=== PATIENT | male | born 1950 | race African-American/Black ===

== ENCOUNTER 2018-07-31 15:36 | Observation (INO) | payer BC, OTHER ==
[2018-07-31 16:51] LABS: Mean Corpuscular HGB CONC 34.8 g/dL (32.0-36.0); Mean Corpuscular Hemoglobin 30.9 pg (27.0-31.0); Mean Corpuscular Volume 88.8 fL (78.0-98.0); Mean Platelet Volume 7.5 fL (7.4-10.4); Platelet Count 107 thou/uL (130-400); RBC Distribution Width 12.7 % (11.5-14.5); Red Blood Cell (RBC) Count 3.24 mill/uL (4.70-6.10); White Blood Cell (WBC) Count 4.1 thou/uL (4.8-10.8)
[2018-07-31 17:04] LABS: Lymphocytes 60 % (21-51); MDiff Complete? YES; Monocytes 8 % (0-10); Neutrophil 30 % (42-75); PLT Morphology Comment Appears Decreased; Polychromasia SLIGHT = 2-3 cells (100X) (0-2/hpf); Reactive Lymphocytes 1 % (0-10)
--- NOTE | 2018-07-31 17:06 | CT ---
BRAIN CT WITHOUT IV CONTRAST: History: 68-year-old male with history of weakness, fall. Head injury. FINDINGS: No focal mass or midline shift. No intra or extraaxial hemorrhage. Sinuses and mastoids are clear. IMPRESSION: No acute intracranial process. No mass or bleed. POS: [facility]
[2018-07-31 17:08] LABS: ALT (SGPT) 22 U/L (8-55); AST (SGOT) 49 U/L (5-34); Albumin 4.9 g/dL (3.4-4.8); Alkaline Phosphatase 86 U/L (40-150); Anion Gap 17 mmol/L (10-20); BUN (Urea Nitrogen) 19 mg/dL (8.4-25.7); Bilirubin, Total 0.5 mg/dL (0.2-1.2); CRP (Inflammatory) Less than 0.50 mg/dL (= or < 0.5); Calc. Creatinine Clearance 0 mL/min (70-130); Calcium 9.2 mg/dL (7.8-10.44); Carbon Dioxide 18 mmol/L (23-31); Chloride 94 mmol/L (98-107); Estimated GFR-MDRD Greater than 90; Globulin 2.8 g/dL (2.4-3.5); Glucose 84 mg/dL (80-115); Potassium 4.6 mmol/L (3.5-5.1); Protein, Total 7.7 g/dL (5.8-8.1); Sodium 124 mmol/L (136-145)
[2018-07-31 18:48] LABS: Folate (Folic Acid) 9.3 ng/mL (7.0-31.4)
--- NOTE | 2018-07-31 18:52 | PDOC.FPRHP ---
- History of Present Illness Chief Complaint: Falls History of Present Illness: 68 year old M presents after 2 falls today. Fall from standing position early this morning and at 14:30 this afternoon. Has no preceding symptoms. Denies dizziness, lightheadedness, weakness before or after fall. says patient will stare off for a few seconds and then fall to ground. He will "shake" for a minute afterward and family are able to help him stand up nearly immediately following fall. Denies LOC or hitting head. March 2017 patient had similar falls which were worked up by Dr. Chandler, all negative per patient. Patient has had no recent changes in medications. HTN well controlled, BPs 120- 130s systolic, pulse 60-65 at home. No changes in memory, weight, strength, appetite. - Allergies/Adverse Reactions Allergies Allergy/AdvReac Type Severity Reaction Status Date / Time amlodipine Allergy Verified 07/31/18 20:57 - Home Medications Medication Instructions Recorded Confirmed Type Atenolol [Tenormin] 50 mg PO BID 07/31/18 07/31/18 History Atorvastatin Calcium [Lipitor] 40 mg PO HS 07/31/18 07/31/18 History Levothyroxine Sodium [Synthroid] 50 mcg PO DAILY 07/31/18 07/31/18 History Lisinopril 40 mg PO BID 07/31/18 07/31/18 History hydrALAZINE [Apresoline] 10 mg PO BID 07/31/18 07/31/18 History - History PMHx: HTN, HLD, hypothyroid PSHx: R inguinal hernia repair FHx: mom-HTN Social: Lives with of 45 years. 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 Denies tobacco or drug use. Drinks 4-5 beers/day. - Review of Systems General: denies: fever/chills, weight/appetite/sleep changes, fatigue Eyes: denies: eye pain, vision changes ENT: denies: nasal congestion, rhinorrhea Respiratory: denies: cough, shortness of breath, exercise intolerance Cardiovascular: denies: chest pain, palpitation, edema Gastrointestinal: denies: nausea, vomiting, diarrhea, constipation, abdominal pain, GI bleeding Genitourinary: denies: dysuria, polyuria Skin: denies: rashes, lesions Musculoskeletal: denies: pain, tenderness, swelling Neurological: reports: syncope. denies: numbness, seizure, weakness Psychological: denies: anxiety, depression - Vital signs BP: 137/83 HR: 92 RR: 19 Tmax: 98.7 Pox: 99% on RA Wt: 69 kg - Physical Exam Constitutional: NAD, awake, alert and oriented HEENT: normocephalic and atraumatic, PERRLA, EOMI, grossly normal vision, grossly normal hearing, MMM, oropharynx clear Neck: supple, trachea midline, no LAD, no JVD, no thyromegaly Heart: RRR, normal S1/S2, no murmurs/rubs/gallops, pulses present, no edema Lungs: CTAB, no respiratory distress, no rales/rhonchi, no wheezing, no retractions Abdomen: soft, non-tender, bowel sounds present, no masses/distention Musculoskeletal: normal structure, normal tone Neurological: CN II-XII intact, normal sensation, other (muscle strength 5/5 in all extremities) Skin: no rash/lesions, good turgor, capillary refill <2 seconds Heme/Lymphatic: no unusual bruising or bleeding, no purpura, no LAD Psychiatric: normal mood and affect, good judgment and insight, intact recent and remote memory FMR H&P: Results - Labs Result Diagrams: 08/01/18 04:50 08/01/18 04:50 Lab results: WBC 4.1 thou/uL (4.8-10.8) L 07/31/18 16:36 Hgb 10.0 g/dL (14.0-18.0) L 07/31/18 16:36 Hct 28.7 % (42.0-52.0) L 07/31/18 16:36 MCV 88.8 fL (78.0-98.0) 07/31/18 16:36 Plt Count 107 thou/uL (130-400) L 07/31/18 16:36 ESR Westergren 3 mm/hr (Less than 20) 07/31/18 16:36 Sodium 124 mmol/L (136-145) L 07/31/18 16:37 Potassium 4.6 mmol/L (3.5-5.1) 07/31/18 16:37 Chloride 94 mmol/L (98-107) L 07/31/18 16:37 Carbon Dioxide 18 mmol/L (23-31) L 07/31/18 16:37 BUN 19 mg/dL (8.4-25.7) 07/31/18 16:37 Creatinine 0.96 mg/dL (0.6-1.3) 07/31/18 16:37 Glucose 84 mg/dL (80-115) 07/31/18 16:37 Calcium 9.2 mg/dL (7.8-10.44) 07/31/18 16:37 Total Bilirubin 0.5 mg/dL (0.2-1.2) 07/31/18 16:37 AST 49 U/L (5-34) H 07/31/18 16:37 ALT 22 U/L (8-55) 07/31/18 16:37 Alkaline Phosphatase 86 U/L (40-150) 07/31/18 16:37 C-Reactive Protein Less than 0.50 mg/dL (= or < 0.5) 07/31/18 16:37 Serum Total Protein 7.7 g/dL (5.8-8.1) 07/31/18 16:37 Albumin 4.9 g/dL (3.4-4.8) H 07/31/18 16:37 FMR H&P: A/P - Problem List (1) Syncope and collapse Current Visit: Yes Status: Acute Code(s): R55 - SYNCOPE AND COLLAPSE (2) Alcohol abuse Current Visit: Yes Status: Acute Code(s): F10.10 - ALCOHOL ABUSE, UNCOMPLICATED (3) Hyponatremia Current Visit: Yes Status: Acute Code(s): E87.1 - HYPO-OSMOLALITY AND HYPONATREMIA (4) Anemia Current Visit: Yes Status: Acute Code(s): D64.9 - ANEMIA, UNSPECIFIED - Plan 68 year old M presents for unexplained falls at home Possible syncope with history of falls - has had neurology workup 03/2017 for same presentation that was reportedly negative - pt denies LOC, may also consider seizure etiology considering hx given by family - check orthostatic BPs - monitor on telemetry - EKG show NSR, RBBB, L axis deviation - syphilis pending - echo pending - will consult neurology in am - plan for MRI brain tomorrow Hypotonic Hyponatremia - Na+ 124 on admission, calculated serum osmolality 254 - urine osmol/sodium pending - possibly due to beer potomania Alcohol abuse - 4-5 beers/day - initiate ASE protocol - AST/ALT ratio consistent with this Normocytic anemia - monitor CBC - Hgb 10 on admission - iron studies pending Thrombocytopenia - platelets 107 - monitor CBC concern for Vitamin B12 deficiency - B12 342 on admission. Considering hx of alcohol abuse, alcoholic liver disease may skew results. - methylmalonic acid and homocysteine pending HTN - as been treated for years, well controlled - no recent changes in medications - continue home lisinopril and hydralazine. Hold atenolol. HLD - continue home atorvastatin Hypothyroidism - on synthroid Diet: Regular Ppx: SCDs Dispo: admit to telemetry for observation FMR H&P: Upper Level - Pertinent history 68M p/w recurrent falls over the last 24 hours. He fell around midnight and then again around 14:30. He reports no associated dizziness, LOC, head trauma, chest pain, or aura. He denies any chest pain associated with the falls. He denies slipping on the floor or tripping on any rugs or furniture. He had frequent falls in March of 2017 that were evaluated at [facility] and worked up with Dr. Chandler. Patient reports no identifiable cause was found for the falls. All imaging, CT and MRI, was negative. He underwent PT for weak right hip girdle but did not start any medication. No further falls until yesterday. No family history of tremor, seizure DO, or Parkinsons disease. He has been stable on all medication for quite some time. Last change in blood pressure medication was made in November of this year. Daughter and son-in-law are in the room and can elaborate further on history. They report that he was staring blankly and became unresponsive to verbal stimuli just before the second fall. After falling, he appeared shaky and it took 30 seconds to 1 minute for him to regain his bearings and begin to answer questions. They deny any seizure activity and report he was able to answer all questions normally within 1-2 minutes of falling. - Pertinent findings WBC: 4.1 H.0 MCV: 89 ESR: 3 CRP: less than 0.5 Na: 124 AST: 49 ALT: 22 Vit B6 and B12 on low end of normal in August of 2017 EKG: complete RBBB CT brain w/o: negative 109/71 mmHg 84 bpm 22 breaths/min 98.7F 99% on RA Gen: A&Ox3 CV: RRR; no murmurs; no carotid bruits Pulm: CTA-B; no adventitious sounds GI: soft; nontender; nondistended Neuro: CNII-XII intact; gait is unsteady but not wide based; no dysdiadochokinesia (rapid alternating movements); normal finger to nose test; normal speech; no nystagmus - Plan Date/Time: 07/31/181850 1. Suspected Syncope -denies loss of consciousness but history and family corroboration consistent with syncope -neurocardiogenic etiology unlikely given no triggers are associated with attacks -low suspicion for orthostatic hypotension given normal PO intake and stable medication regimen; he was able to stand up in exam room and walk without becoming light headed; regardless, will check orthostatic VS -possible cardiac etiology, will monitor on telemetry and order TTE; however no CP or palpitations associated with episodes -neurologic etiology possible, will check MRI and consult Neurology in AM, also request records from [facility] for prior work-up; CT head negative -check TSH, vitamin B6/12, folate, RPR 2. Hypotonic Hyponatremia -Na at 124 with serum osms of 259 -check urine sodium and urine osms -appears euvolemic on exam; will try IVF and monitor with AM labs 3. Normocytic anemia -likely multifactorial; probable iron deficiency masked by macrocytosis from alcohol and low B12 -check iron studies and B6/12, folate 4. Alcohol abuse -reports 5 drinks per day -ASE protocol 5. HTN -continue home meds -hold beta laura until orthostatic vital signs performed 6. HLD -continue home statin 7. Hypothyroidism -continue synthroid I, Jerardo Rosenbaum, have evaluated this patient and agree with findings/plan as outlined by network internship resident. Pertinent changes/additions are listed here. Attending Addendum - Attending Addendum Date/Time: 07/31/181919 I personally evaluated the patient and discussed the management with Dr. Rose and Dr. Rosenbaum I agree with the History, Examination, Assessment and Plan documented above with any addition or exceptions noted below. 68 yo male with history of HTN presents for recurrent falls today. Patient with 2 episodes of falling at home. Minor injury to occipital region of head. Patient denies symptoms prior to falling. Denies LOC. Family members present state he is disoriented prior to and after falling. Patient denies gait abnormalities or weakness. Family states more falls happen at night then during day. Denies any sleep aids. Reports drinking about 5 alcoholic drinks per day. No other changes. Falls vs syncope: Unsure etiology based on history. Cerebellar findings noted on neuro exam that is contributing to balance and stability. These changes likely related to age and chronic alcohol use. Due to mild disorientation noted by family unsure if cardiac factor contributing or substance use contributing. Place on tele. MRI in AM. PT evaluation to further classify cerebellar findings. Request prior workup at [facility]. Notify neuro as needed. Obs overnight. Robb
[2018-07-31 20:52] VITALS: BMI 20.2
[2018-07-31 22:58] LABS: Osmolality, Urine 289 mOsm/kg (300-900)
[2018-07-31] MEDS: Sodium Chloride 0.9% 1,000 ML IV SCH (23:23)
[2018-07-31 23:44] LABS: Sodium, Urine 45 mmol/L (Not Available)
[2018-08-01 05:32] LABS: Anion Gap 14 mmol/L (10-20); BUN (Urea Nitrogen) 14 mg/dL (8.4-25.7); Calc. Creatinine Clearance 90 mL/min (70-130); Calcium 9.1 mg/dL (7.8-10.44); Carbon Dioxide 19 mmol/L (23-31); Chloride 102 mmol/L (98-107); Estimated GFR-MDRD Greater than 90; Glucose 68 mg/dL (80-115); Iron 98 ug/dL (65-175); Iron Binding Capacity, Total 214 mcg/dL (261-462); Potassium 4.4 mmol/L (3.5-5.1); Sodium 131 mmol/L (136-145)
--- NOTE | 2018-08-01 05:37 | PDOC.FPRHP ---
- Allergies/Adverse Reactions Allergies Allergy/AdvReac Type Severity Reaction Status Date / Time amlodipine Allergy Verified 07/31/18 20:57 - Home Medications Medication Instructions Recorded Confirmed Type Atenolol [Tenormin] 50 mg PO BID 07/31/18 07/31/18 History Atorvastatin Calcium [Lipitor] 40 mg PO HS 07/31/18 07/31/18 History Levothyroxine Sodium [Synthroid] 50 mcg PO DAILY 07/31/18 07/31/18 History Lisinopril 40 mg PO BID 07/31/18 07/31/18 History hydrALAZINE [Apresoline] 10 mg PO BID 07/31/18 07/31/18 History - History PMHx: PSHx: FHx: Social: - Vital signs BP: [] HR: [] RR: [] Tmax: [] Pox: []% on [] Wt: [] FMR H&P: Results - Labs Result Diagrams: 07/31/18 16:36 08/01/18 04:50 Lab results: WBC 4.1 thou/uL (4.8-10.8) L 07/31/18 16:36 Hgb 10.0 g/dL (14.0-18.0) L 07/31/18 16:36 Hct 28.7 % (42.0-52.0) L 07/31/18 16:36 MCV 88.8 fL (78.0-98.0) 07/31/18 16:36 Plt Count 107 thou/uL (130-400) L 07/31/18 16:36 ESR Westergren 3 mm/hr (Less than 20) 07/31/18 16:36 Sodium 131 mmol/L (136-145) L 08/01/18 04:50 Potassium 4.4 mmol/L (3.5-5.1) 08/01/18 04:50 Chloride 102 mmol/L (98-107) 08/01/18 04:50 Carbon Dioxide 19 mmol/L (23-31) L 08/01/18 04:50 BUN 14 mg/dL (8.4-25.7) 08/01/18 04:50 Creatinine 0.78 mg/dL (0.6-1.3) 08/01/18 04:50 Glucose 68 mg/dL (80-115) L 08/01/18 04:50 Calcium 9.1 mg/dL (7.8-10.44) 08/01/18 04:50 Total Bilirubin 0.5 mg/dL (0.2-1.2) 07/31/18 16:37 AST 49 U/L (5-34) H 07/31/18 16:37 ALT 22 U/L (8-55) 07/31/18 16:37 Alkaline Phosphatase 86 U/L (40-150) 07/31/18 16:37 C-Reactive Protein Less than 0.50 mg/dL (= or < 0.5) 07/31/18 16:37 Serum Total Protein 7.7 g/dL (5.8-8.1) 07/31/18 16:37 Albumin 4.9 g/dL (3.4-4.8) H 07/31/18 16:37 FMR H&P: A/P - Problem List (1) Syncope and collapse Current Visit: Yes Status: Acute Code(s): R55 - SYNCOPE AND COLLAPSE (2) Alcohol abuse Current Visit: Yes Status: Acute Code(s): F10.10 - ALCOHOL ABUSE, UNCOMPLICATED (3) Anemia Current Visit: Yes Status: Acute Code(s): D64.9 - ANEMIA, UNSPECIFIED (4) Hyponatremia Current Visit: Yes Status: Acute Code(s): E87.1 - HYPO-OSMOLALITY AND HYPONATREMIA - Plan 68 year old M presents for unexplained falls at home Possible syncope with history of falls - has had neurology workup 03/2017 for same presentation that was reportedly negative - pt denies LOC, may also consider seizure etiology considering hx given by family - check orthostatic BPs - monitor on telemetry - EKG show NSR, RBBB, L axis deviation - syphilis pending - echo pending - will consult neurology in am - plan for MRI brain tomorrow Hypotonic Hyponatremia - Na+ 124 on admission, calculated serum osmolality 254 - urine osmol/sodium pending - possibly due to beer potomania Alcohol abuse - 4-5 beers/day - initiate ASE protocol - AST/ALT ratio consistent with this Normocytic anemia - monitor CBC - Hgb 10 on admission - iron studies pending Thrombocytopenia - platelets 107 - monitor CBC concern for Vitamin B12 deficiency - B12 342 on admission. Considering hx of alcohol abuse, alcoholic liver disease may skew results. - methylmalonic acid and homocysteine pending HTN - as been treated for years, well controlled - no recent changes in medications - continue home lisinopril and hydralazine. Hold atenolol. HLD - continue home atorvastatin Hypothyroidism - on synthroid Diet: Regular Ppx: SCDs Dispo: admit to telemetry for observation FMR H&P: Upper Level - Plan Date/Time: 08/01/18 0536 I, [], have evaluated this patient and agree with findings/plan as outlined by record label internship resident. Pertinent changes/additions are listed here.
[2018-08-01 05:47] LABS: Eosinophils 2 % (0-10); Hemoglobin 9.2 g/dL (14.0-18.0); Lymphocytes 47 % (21-51); MDiff Complete? YES; Mean Corpuscular HGB CONC 35.2 g/dL (32.0-36.0); Mean Corpuscular Hemoglobin 31.1 pg (27.0-31.0); Mean Corpuscular Volume 88.4 fL (78.0-98.0); Mean Platelet Volume 7.1 fL (7.4-10.4); Monocytes 14 % (0-10); Neutrophil 36 % (42-75); PLT Morphology Comment Appears Decreased; Platelet Count 96 thou/uL (130-400); RBC Distribution Width 12.4 % (11.5-14.5); Red Blood Cell (RBC) Count 2.95 mill/uL (4.70-6.10); White Blood Cell (WBC) Count 2.3 thou/uL (4.8-10.8)
[2018-08-01 05:48] LABS: Syphilis Antibody Nonreactive (Nonreactive); Syphilis Antibody Index 0.04 S/CO (<1.00 Non-Reactive)
[2018-08-01] MEDS ORDERED: Levothyroxine Sodium 50 MCG TAB PO SCH (06:00)
[2018-08-01] MEDS: Sodium Chloride 0.9% 1,000 ML IV SCH ×2 (07:15→15:43)
--- NOTE | 2018-08-01 08:24 | PDOC.FM ---
- Subjective Subjective: 68 yo M here for syncopal episodes. Denies any LOC yesterday. Reports he is feeling well and in no pain, denies headache, chest pain or SOB. Reports his last beer was yesterday at noon. - Objective Vital Signs & Weight: Vital Signs (12 hours) Temp Pulse Resp BP BP BP BP 08/01/18 08:16 79 08/01/18 07:22 98.3 F 74 16 08/01/18 07:10 98.6 F 79 20 160/87 H 08/01/18 03:51 98.3 F 74 16 132/82 132/82 07/31/18 23:20 98.6 F 71 18 101/57 L 101/57 L 07/31/18 21:43 94/55 L 07/31/18 21:42 108/62 77/53 L 07/31/18 20:59 98.5 F 84 18 07/31/18 20:30 98.5 F 84 18 144/75 H 144/75 H BP Pulse Ox 08/01/18 08:16 08/01/18 07:22 08/01/18 07:10 95 08/01/18 03:51 95 07/31/18 23:20 93 L 07/31/18 21:43 07/31/18 21:42 115/69 07/31/18 20:59 07/31/18 20:30 94 L Weight Weight 68.538 kg I&O: 07/31/18 08/01/18 08/02/18 06:59 06:59 06:59 Intake Total 1043 Output Total 2150 250 Balance -1107 -250 Result Diagrams: 08/01/18 04:50 08/01/18 04:50 <Laura Birch - Last Filed: 08/01/18 11:48> - Objective Vital Signs & Weight: Vital Signs (12 hours) Temp Pulse Pulse Pulse Resp BP BP 08/01/18 11:39 99.1 F 92 20 08/01/18 10:35 81 88 161/84 H 08/01/18 08:16 79 08/01/18 07:22 98.3 F 74 16 08/01/18 07:10 98.6 F 79 20 08/01/18 03:51 98.3 F 74 16 132/82 BP BP BP BP BP Pulse Ox Pulse Ox 08/01/18 11:39 161/80 H 130/65 175/95 H 97 08/01/18 10:35 169/89 H 94 L 08/01/18 08:16 08/01/18 07:22 08/01/18 07:10 160/87 H 95 08/01/18 03:51 132/82 95 Pulse Ox 08/01/18 11:39 08/01/18 10:35 97 08/01/18 08:16 08/01/18 07:22 08/01/18 07:10 08/01/18 03:51 Weight Weight 68.538 kg I&O: 07/31/18 08/01/18 08/02/18 06:59 06:59 06:59 Intake Total 1043 Output Total 2150 250 Balance -1107 -250 Result Diagrams: 08/01/18 04:50 08/01/18 04:50 <Ludwig House - Last Filed: 08/01/18 13:34> Phys Exam - Physical Examination Constitutional: NAD HEENT: PERRLA, moist MMs Neck: no nodes, supple Respiratory: no wheezing, no rales, no rhonchi, clear to auscultation bilateral Cardiovascular: RRR, no significant murmur Gastrointestinal: soft, non-tender, no distention, positive bowel sounds Musculoskeletal: no edema, pulses present Neurological: moves all 4 limbs Psychiatric: normal affect, A&O x 3 <Laura Birch - Last Filed: 08/01/18 11:48> Dx/Plan (1) Syncope and collapse Code(s): R55 - SYNCOPE AND COLLAPSE Status: Acute (2) Alcohol abuse Code(s): F10.10 - ALCOHOL ABUSE, UNCOMPLICATED Status: Acute (3) Anemia Code(s): D64.9 - ANEMIA, UNSPECIFIED Status: Acute (4) Hyponatremia Code(s): E87.1 - HYPO-OSMOLALITY AND HYPONATREMIA Status: Acute - Plan Plan: 68 year old M presents for unexplained falls at home Possible syncope with history of falls - has had neurology workup 03/2017 for same presentation that was reportedly negative - pt denies LOC, may also consider seizure etiology considering hx given by family - Orthostatic BP positive, recheck today, post fluid resuscitation - monitor on telemetry - EKG show NSR, RBBB, L axis deviation. - syphilis negative - echo pending - MRI brain pending -Requesting records [facility] from admission 1.5 years ago Hypotonic Hyponatremia - Na+ 124 on admission, calculated serum osmolality 254 - urine osmol/sodium unremarkable - possibly due to beer potomania Alcohol abuse - 4-5 beers/day, last beer 07/31/18 around noon - initiate ASE protocol - AST/ALT ratio consistent with this Normocytic anemia, probably Anemia of chronic disease - monitor CBC - Hgb 10 on admission - iron studies show anemia of chronic disease (TIBC Low, ferritin high) Thrombocytopenia - platelets 96 - monitor CBC concern for Vitamin B12 deficiency - B12 342 on admission. Considering hx of alcohol abuse, alcoholic liver disease may skew results. - methylmalonic acid pending - Homocysteine high HTN - as been treated for years, well controlled - no recent changes in medications - continue home lisinopril and hydralazine. Hold atenolol. HLD - continue home atorvastatin Hypothyroidism - on synthroid - TSH wnl Diet: Regular Ppx: SCDs <Laura Birch - Last Filed: 08/01/18 11:48> Attending Addendum - Attending Addendum Date/Time: 08/01/18 2702 I personally evaluated the patient and discussed the management with Dr. Birch. I agree with the History, Examination, Assessment and Plan documented above with any addition or exceptions noted below. Patient here with syncope x2 with history of negative workup in the past. He had positive orthostatics and has been fluid resuscitated. Will recheck vitals this afternoon and consider discharge this afternoon if ambulating and feeling well. He is having some mild tremor at this time that could be early alcohol withdrawals. Await results from MRI but if normal can likely be discharged home today with further outpatient follow up. His sodium is likely beer potomania related and has responded well to NS fluids. Counselled on cessation of alcohol for long-term health. <Ludwig House - Last Filed: 08/01/18 13:34>
[2018-08-01] MEDS ORDERED: hydrALAZINE 10 MG TAB PO SCH (09:00)
[2018-08-01] MEDS ORDERED: Lisinopril 20 MG TAB PO SCH (09:00)
--- NOTE | 2018-08-01 11:16 | MRI ---
BRAIN MRI WITHOUT COTNRAST: HISTORY: Weakness. Tremor. History of fall. COMPARISON: None. TECHNIQUE: Brain MRI is performed without intravenous Gadolinium administration. Multisequential, multiplanar i maging is performed. FINDINGS: Calvarium has a normal T1 marrow signal intensity. Midline brain parenchymal structures are unremark able. No hemorrhage on the axial gradient echo sequence. No parenchymal mass, mass effect, or midline shift. Brain volume is age appropriate. Cortical nix- white matter differentiation is preserved. The ventricles and sulci are patent and symmetric. Central arterial flow voids are maintained. Abse nt restricted diffusion. No significant T2 or FLAIR white matter hyperintensities to suggest chronic small-vessel ischemic clair nge. Adequate aeration of the sinuses and mastoid air cells. IMPRESSION: 1. Absent restricted diffusion. No acute infarct. 2. No intracranial hemorrhage. 3. Age-appropriate atrophy. POS: [facility]
[2018-08-01 12:18] VITALS: TEMP 99.1
[2018-08-01 13:59] LABS: HIV (1/2) Antibody/Antigen Non-Reactive (NonReactive); HIV 1/2 INDEX 0.08 S/CO (<1.00)
[2018-08-01 16:08] VITALS: BP 152/89
[2018-08-01] MEDS ORDERED: Cyanocobalamin 1000 MCG/ML VIAL IM SCH (16:45)
--- NOTE | 2018-08-01 17:07 | CON ---
DATE OF CONSULTATION: 08/01/2018 REFERRING PHYSICIAN: Dr. Daryl Ruelas. REASON FOR CONSULTATION: Tremors and fall. HISTORY OF PRESENT ILLNESS: Mr. Mcfarlane is a pleasant 68-year-old - [place] male who has been consulted for evaluation of tremor and fall. The history is obtained from patient as well as his and daughter who were present at bedside. The patient reports that yesterday at 1:30 in the morning, he woke up from sleep and noticed that the light was turned on. He went to go check on the light and realized that his daughter was working outside and had the light turned on, so he decided to go back to his bed. At that point, he suddenly fell down and there was no loss of consciousness. He did not trip over any objects. There was no lightheadedness, no dizziness, no vertigo-type sensation. He returned back to his bed and went back to sleep okay. Around 2: 00 p.m. on yesterday, he had another episode where he lost balance and fell down. With both of these episodes, this happened while he was walking. With both of these episodes, there was no lightheadedness, no dizziness, no vertigo- type sensation. No near syncope or syncope. There was no seizure-like activity. He does report of having noted tremors over the past few days that are primarily present with activities. He reports that he had similar episode of falling down in 2016, at which time he had seen Dr. Chandler. He had an extensive workup done at that time without any conclusion. He had approximately 3 falls at that time. He denies any headache, vision changes, diplopia, ptosis, dysarthria, dysphagia, numbness, tingling or weakness. He does report of tremors over the past few days that was primarily with activities. He denies any difficulty with walking or balance. He denies stooped posture. He denies shuffling gait. He denies difficulty with bowel or bladder function. PAST MEDICAL HISTORY: Significant for hypertension, hyperlipidemia, and hypothyroidism. PAST SURGICAL HISTORY: Right inguinal hernia repair. FAMILY HISTORY: Significant for hypertension. SOCIAL HISTORY: He denies smoking or illicit drug use. He does drink 4-5 years on a daily basis. He lives with his , currently works as at [employer]. CURRENT MEDICATIONS: Please review MAR. ALLERGIES: Include AMLODIPINE. REVIEW OF SYSTEMS: As mentioned in the HPI, otherwise negative. PHYSICAL EXAMINATION: VITAL SIGNS: Blood pressure 151/80, pulse of 92, temperature of 99.1, respirations of 20, O2 sats of 97% on room air. GENERAL: Well-developed, well-nourished -[place] male in no apparent distress. RESPIRATORY: Clear to auscultation bilaterally. CARDIOVASCULAR: Regular rate and rhythm. NEUROLOGIC: Mental status: The patient is awake, alert, oriented x3. Speech and language: Fluent speech. Cranial nerves: Pupils are 3 mm and reactive. Visual robison are intact. Extraocular muscles are intact. No nystagmus is noted. Face is symmetric. Tongue and uvula midline. Motor exam showed normal tone and bulk with 5/5 strength in both upper and lower extremities. There is no clubbing or rigidity noted. Sensory: Sensation is intact and symmetric. Deep tendon reflexes 2+ . Babinski: Plantar responses flexion bilaterally. Coordination, There is a mild dysmetria noted in both upper extremities on [id number]. Romberg is slightly positive. He does have tremors in both hands with the postural and kinetic in nature. LABORATORY DATA: I reviewed, which included CBC, CMP, TSH, homocysteine, B12, folic acid, urine osmolality, urine sodium and syphilis, which is significant for WBC of 2.3, hemoglobin 9.2, hematocrit 26.0, platelet count of 96. Sodium of 131, iron of 98. TIBC of 214, total ferritin of 972.56, B12 of 342 with homocysteine level 22.02. Urine osmolality is 289, otherwise negative. IMAGING STUDIES: MRI brain without contrast was reviewed, which showed no acute intracranial abnormality. IMPRESSION: 1. Tremors, likely essential tremors. 2. Gait imbalance. ASSESSMENT AND PLAN: Mr. Mcfarlane is a pleasant 68-year-old -[place] male who presented with 2 episodes of falling down as well as tremors over the past few days. His tremors are more action induced. He does also have slight dysmetria on both sides. I have reviewed his MRI brain which is essentially normal. He does have low B12 with a high homocystine level that can affect imbalance, thus I would recommend starting him on B12 replacement therapy with B12 1000 mcg per mL 1 mL IM every weekly for 6 weeks followed by once a month for 6 months. This may also be secondary to long-term alcohol use. I will recommend for him to discontinue alcohol use. I have advised the patient's family that they may need to be seen by Dr. Chandler as an outpatient to have further workup. I do not think he has Parkinson disease as he does not have any cogwheeling rigidity. No stiffness and no resting tremors. No further neurological workup needed from my standpoint. Thank you for consultation. JACQUIE
[2018-08-01] MEDS ORDERED: Atorvastatin Calcium 40 MG TAB PO SCH (21:00)
--- NOTE | 2018-08-02 06:17 | DIS-2 ---
DATE OF ADMISSION: 07/31/2018 DATE OF DISCHARGE: 08/01/2018 RESIDENT: Dr. Laura Birch. ADMITTING ATTENDING: Dr. Burns. DISCHARGE ATTENDING: Dr. Ludwig House. CONSULTATION: Neurology, Dr. Marlen Chirinos on 07/31/2018. PROCEDURES: On 07/31/2018, brain CT: Impression: No acute intracranial process. No mass or bleed. Brain MRI on 08/01/2018: Impression: Absence of restricted diffusion. No acute infarct, no intracranial hemorrhage. PRIMARY DIAGNOSIS: Syncope with history of a fall. SECONDARY DIAGNOSES: 1. Hypotonic hyponatremia. 2. Alcohol abuse. 3. Normocytic anemia, possibly anemia of chronic disease. 4. Thrombocytopenia. 5. Concern for vitamin B12 deficiency. 6. Hypertension. 7. Hyperlipidemia. 8. Hypothyroidism. DISCHARGE MEDICATIONS: 1. 50 mg of atenolol p.o. b.i.d. 2. Atorvastatin 40 mg at bedtime p.o. 3. Hydralazine 10 mg p.o. b.i.d. 4. Levothyroxine 50 mcg p.o. daily. 5. Lisinopril 40 mg p.o. b.i.d. DISCONTINUED MEDICATIONS: None. HISTORY OF PRESENT ILLNESS AND HOSPITAL COURSE: This is a 68-year-old male who presents after 2 falls. He had a fall from a standing position early in the morning and then at 1430 hours later that afternoon. He had no preceding symptoms. He denied dizziness, lightheadedness, or weakness before or after the fall. The said that the patient would stare off for a few seconds and then fell to the ground. He would shake for a minute afterward and family are able to help him stand up nearly immediately following fall. He denied loss of consciousness or hitting his head. On 03/2017, patient had a similar fall which was worked up by Dr. Chandler, all were negative per patient. Patient has had no recent changes in medications. Hypertension is well controlled, blood pressures 120s to 130s systolic, pulse 60-65 in home. He had had no changes in memory, weight, strength, or appetite. For the possible syncope, patient denies loss of consciousness, was considered possibly a seizure etiology, consider the history given by family. He was seen by Neuro, believed that he did not think that he has Parkinson disease because he does not have any cogwheeling rigidity, he did not have any stiffness, or resting tremor. He did not need a further neurological workup from his standpoint. The syncopal episode seemed to be orthostatic in nature. He had positive orthostatic blood pressures where his pressures were drop more than 10 points systolic from lying to sitting and from sitting to standing. Even post-fluid resuscitation, he continued to have positive orthostatics (systolic would drop >10 pts). He was monitored on telemetry. His EKG showed normal sinus rhythm with a right bundle branch block and left axis deviation. His syphilis was negative. He has an echo that is pending and MRI brain that was normal. We also requested records from [facility] from a similar admission presentation a year and half ago, but it only showed that he had a CT of the head and laceration repair. For his hypotonic hyponatremia, his sodium was 124 on admission. It is possibly due to beer potomania. The patient gives a history of drinking 4-5 beers per day. His last one was his day of admission around noon. He was placed on EDGAR protocol. He was also found to have normocytic anemia. His iron studies which showed that he most likely has anemia of chronic disease. His hemoglobin was 10 on admission. He had a low total iron binding capacity and a high ferritin. He was also found to have thrombocytopenia. His platelets were 96. He was also found to have a vitamin B12 deficiency. This is probably secondary to his history of alcohol abuse. He has high homocysteine. He was given a B12 injection on his way out the door per patient request. Hypertension that was well controlled. He was sent home on his home hypertension medications. Hyperlipidemia: He was sent home on his home atorvastatin. Hypothyroidism: He is on Synthroid. His TSH in the hospital was within normal limits. DISPOSITION: Stable. DISCHARGE INSTRUCTIONS: 1. Location: Home. 2. Diet: Regular. 3. Activity: As tolerated. Be careful when he rising from a sitting to a standing position gave herself a minute to equilibrate before moving around. Try not to stand up quickly and move across the room. 4. Followup: Follow up with PCP within 3 days for alcohol abuse, orthostatic hypotension and consider an outpatient cardiac stress test. JACQUIE
[2018-08-05 10:23] LABS: Methylmalonic Acid 76 nmol/L (0-378)
--- NOTE | 2018-08-13 18:19 | EKG ---
Test Reason : Blood Pressure : / mmHG Vent. Rate : 071 BPM Atrial Rate : 071 BPM P-R Int : 142 ms QRS Dur : 152 ms QT Int : 428 ms P-R-T Axes : 073 -54 050 degrees QTc Int : 465 ms Normal sinus rhythm Left axis deviation Right bundle branch block Abnormal ECG Confirmed by DEBBIE SALDANA, LINDSEY Leal ([id number]), newspaper editor managing SAL BARAJAS ([id number]) on 08/13/2018 6:19:17 PM Referred By: Confirmed By:LINDSEY LEWIS MD
== END 2018-08-01 18:55 | disposition home or self-care (01) ==
LOC: ERS 15:36 → 2SW 17:25
PROVIDERS: ADMIT Student in an Organized Health Care Education/Training Program; ATTEND Student in an Organized Health Care Education/Training Program
DX: R55 Syncope and collapse (principal); E87.1 Hypo-osmolality and hyponatremia; F10.10 Alcohol abuse, uncomplicated; D64.9 Anemia, unspecified; D69.6 Thrombocytopenia, unspecified; I10 Essential (primary) hypertension; E03.9 Hypothyroidism, unspecified; E78.5 Hyperlipidemia, unspecified; Z79.899 Other long term (current) drug therapy; Z88.8 Allergy status to other drugs, medicaments and biological substances
CPT/HCPCS: 36415; 36416; 70450; 70551; 80048; 80053; 82607; 82728; 82746; 83090; 83540; 83550; 83921; 83935; 84300; 84443; 85025; 85652; 86140; 86780; 87389; 93005; 93306; 96360; 96361; 96372; A4216; G0378; G8978-GP-CJ; G8979-GP-CJ; G8980-GP-CJ; J3420